=== PATIENT | female | born 1980 | race Caucasian/White ===

== ENCOUNTER 2023-09-10 14:20 | Emergency (ER) | payer MEDICAID, MEDICARE ==
[~2023-09-10] VITALS: Ht 160 cm; Wt 116.1 kg
[2023-09-10 14:32] VITALS: BP 105/63; PULSE 91; RESP 17; TEMP 97.7; O2SAT 95
[2023-09-10] MEDS: CYCLOBENZAPRINE 10 MG TAB PO ONE (15:35)
[2023-09-10] MEDS: HYDROcodone/APAP 7.5/325 MG 1 TAB PO ONE (15:36)
[2023-09-10] MEDS ORDERED: ACET-8905 PO (16:47)
[2023-09-10] MEDS ORDERED: METH-1681 PO (16:47)
[2023-09-10] MEDS ORDERED: LID5T TP (16:47)
[2023-09-10 17:00] LABS: APPEARANCE,URINE SLIGHTLY CLOUDY (CLEAR); COLOR,URINE YELLOW (YELLOW)
[2023-09-10 17:01] LABS: BILIRUBIN,URINE NEGATIVE (NEGATIVE); BLOOD, URINE NEGATIVE (NEGATIVE); PROTEIN,URINE NEGATIVE (NEGATIVE); UGLUCOSE NEGATIVE (NEGATIVE); UROBILINOGEN,URINE 0.2 EU/dL (0.2 - 1)
[2023-09-10 17:02] LABS: NITRITE, URINE NEGATIVE (NEGATIVE)
[2023-09-10 17:03] LABS: LEUKOCYTE ESTERASE ,URINE 2+ (NEGATIVE)
[2023-09-10 17:04] LABS: BACTERIA,URINE >30 (MANY) /HPF (None Seen); RBC,URINE 0-5 /HPF (0-5); SQUAMOUS EPITHELIAL CELL,UR 4-10 (MOD) /LPF (0-3 (FEW))
[2023-09-10] MEDS ORDERED: CEPH-588 PO (17:12)
[2023-09-10 18:00] VITALS: BP 110/65; PULSE 88; RESP 18; TEMP 97.3; O2SAT 98
== END 2023-09-10 18:01 | disposition home or self-care (01) ==
LOC: MED 14:20
DX: N39.0 Urinary tract infection, site not specified (principal); M54.50 Low back pain, unspecified; Z79.1 Long term (current) use of non-steroidal anti-inflammatories (NSAID); Z79.899 Other long term (current) drug therapy
CPT/HCPCS: 72100; 81001; 81025; 87086; 99284

== ENCOUNTER 2023-12-12 08:27 | Emergency (ER) | payer MEDICAID, OTHER ==
[~2023-12-12] VITALS: Ht 157.5 cm; Wt 111.1 kg
[~2023-12-12 08:27] MED LIST: ACET-8905 PO; CEPH-588 PO; LID5T TP; METH-1681 PO
[2023-12-12 08:35] VITALS: BP 131/83; PULSE 65; RESP 18; TEMP 98; O2SAT 97
[2023-12-12 09:29] LABS: BASOPHILS % (AUTO) 0.3 % (0.0-2.0); EOSINOPHILS % (AUTO) 0.1 % (0.0-4.0); HEMATOCRIT 44.8 % (36-48); HEMOGLOBIN 14.9 g/dL (12.0-16.0); LYMPHOCYTES # (AUTO) 1.3 K/uL (2.5-16.5); LYMPHOCYTES % (AUTO) 10.6 % (20.5-51.1); MEAN CORPUSCULAR HEMOGLOBIN 29 pg (27-31); MEAN CORPUSCULAR HGB CONC 33 g/dL (33-37); MEAN CORPUSCULAR VOLUME 88.3 fL (80-94); MONOCYTES # (AUTO) 0.3 K/uL (0.8-1.0); MONOCYTES % (AUTO) 2.6 % (1.7-9.3); NEUTROPHILS # (AUTO) 10.9 K/uL (1.8-7.7); NEUTROPHILS % (AUTO) 86.4 % (42.2-75.2); PLATELET COUNT (AUTO) 324 K/uL (140-450); RED BLOOD CELL COUNT(AUTO) 5.07 MIL/uL (4.20-5.40); RED CELL DISTRIBUTION WIDTH 13.5 % (11.6-13.7); WHITE BLOOD COUNT (AUTO) 12.6 K/uL (4.8-10.8)
[2023-12-12] MEDS: NACL 0.9% 1,000 ML IV ONE (09:39)
[2023-12-12] MEDS: MORPHINE SULFATE 4 MG/ML SYR IVP ONE (09:40)
[2023-12-12] MEDS: ONDANSETRON 4 MG/2 ML VIAL IVP ONE (09:40)
[2023-12-12 09:42] VITALS: O2SAT 97
[2023-12-12 10:10] LABS: ANION GAP 10.3 (8-16); CALCIUM 10.5 mg/dL (8.5-10.1); CARBON DIOXIDE 29.5 mmol/L (21-32); CREATININE 1.1 mg/dL (0.6-1.3); POTASSIUM 3.8 mmol/L (3.5-5.1)
[2023-12-12 10:15] LABS: ALBUMIN 4.2 g/dL (3.4-5.0); BILIRUBIN,DIRECT 0.2 mg/dL (0.0-0.3); TOTAL BILIRUBIN 0.8 mg/dL (0.0-1.0); TOTAL PROTEIN, SERUM 8.6 g/dL (6.4-8.2)
[2023-12-12] MEDS: METOCLOPRAMIDE 10 MG/2 ML INJ VIAL IVP ONE (10:41)
[2023-12-12] MEDS ORDERED: DICYCLOMINE HCL LIQUID 10 MG/5 ML UDC ONE (11:29)
[2023-12-12] MEDS ORDERED: ALUMINUM HYD/MAG/SIMETHICONE 30 ML UDC ONE (11:29)
[2023-12-12] MEDS: DICYCLOMINE HCL LIQUID 20 MG, ALUMINUM HYD/MAG/SIMETHICONE 30 ML, LIDOCAINE VISCOUS 2% ... PO ONE (11:32)
[2023-12-12 11:42] LABS: APPEARANCE,URINE CLEAR (CLEAR); BILIRUBIN,URINE NEGATIVE (NEGATIVE); BLOOD, URINE NEGATIVE (NEGATIVE); COLOR,URINE YELLOW (YELLOW); LEUKOCYTE ESTERASE ,URINE NEGATIVE (NEGATIVE); NITRITE, URINE NEGATIVE (NEGATIVE); PH,URINE 6.5 (5.0-9.0); PROTEIN,URINE NEGATIVE (NEGATIVE); UGLUCOSE NEGATIVE (NEGATIVE); UROBILINOGEN,URINE 0.2 EU/dL (0.2 - 1)
[2023-12-12] MEDS ORDERED: ONDA-188 SL (11:50)
[2023-12-12] MEDS ORDERED: FAMO-90 PO (11:50)
[2023-12-12] MEDS ORDERED: SUCR1TAB56 PO (11:50)
[2023-12-12 12:04] VITALS: BP 131/83; PULSE 65; RESP 18; TEMP 98; O2SAT 97
== END 2023-12-12 12:07 | disposition home or self-care (01) ==
LOC: MED 08:27
DX: K29.70 Gastritis, unspecified, without bleeding (principal); Z90.49 Acquired absence of other specified parts of digestive tract; Z79.899 Other long term (current) drug therapy; Z88.6 Allergy status to analgesic agent; Z88.5 Allergy status to narcotic agent
CPT/HCPCS: 36415; 74022; 80048; 80076; 81003; 81025; 83690; 85025; 96361; 96374; 96375; 99284; J2270; J2405; J2765; J7030

== ENCOUNTER 2024-01-01 07:08 | Emergency (ER) | payer OTHER ==
[~2024-01-01] VITALS: Ht 160 cm; Wt 108.6 kg
[~2024-01-01 07:08] MED LIST changes: +FAMO-90 PO; +ONDA-188 SL; +SUCR1TAB56 PO
[2024-01-01 07:15] VITALS: BP 135/69; PULSE 80; RESP 18; TEMP 98; O2SAT 96
[2024-01-01] MEDS: MORPHINE SULFATE 4 MG/ML SYR IVP ONE (07:51)
[2024-01-01] MEDS: NACL 0.9% 1,000 ML IV SCH (07:53)
[2024-01-01] MEDS: diphenhydrAMINE 50 MG/ML VIAL IVP ONE (07:54)
[2024-01-01] MEDS: METOCLOPRAMIDE 10 MG/2 ML INJ VIAL IVP ONE (07:55)
[2024-01-01 07:57] LABS: BASOPHILS # (AUTO) 0.1 K/uL (0.00-0.22); BASOPHILS % (AUTO) 0.4 % (0.0-2.0); EOSINOPHILS % (AUTO) 0.1 % (0.0-4.0); HEMATOCRIT 42.1 % (36-48); HEMOGLOBIN 14.1 g/dL (12.0-16.0); LYMPHOCYTES # (AUTO) 1.1 K/uL (2.5-16.5); LYMPHOCYTES % (AUTO) 8.8 % (20.5-51.1); MEAN CORPUSCULAR HEMOGLOBIN 30 pg (27-31); MEAN CORPUSCULAR HGB CONC 34 g/dL (33-37); MEAN CORPUSCULAR VOLUME 87.8 fL (80-94); MONOCYTES # (AUTO) 0.2 K/uL (0.8-1.0); NEUTROPHILS # (AUTO) 11.1 K/uL (1.8-7.7); NEUTROPHILS % (AUTO) 88.7 % (42.2-75.2); PLATELET COUNT (AUTO) 334 K/uL (140-450); RED CELL DISTRIBUTION WIDTH 13.7 % (11.6-13.7); WHITE BLOOD COUNT (AUTO) 12.5 K/uL (4.8-10.8)
[2024-01-01 08:00] VITALS: O2SAT 96
[2024-01-01 08:06] LABS: ANION GAP 14.5 (8-16); CALCIUM 9.4 mg/dL (8.5-10.1); CARBON DIOXIDE 27.3 mmol/L (21-32); POTASSIUM 3.8 mmol/L (3.5-5.1)
[2024-01-01 08:12] LABS: ALBUMIN 3.7 g/dL (3.4-5.0); BILIRUBIN,DIRECT 0.2 mg/dL (0.0-0.3); TOTAL BILIRUBIN 0.5 mg/dL (0.0-1.0); TOTAL PROTEIN, SERUM 7.6 g/dL (6.4-8.2)
[2024-01-01 09:18] LABS: APPEARANCE,URINE CLEAR (CLEAR); BILIRUBIN,URINE NEGATIVE (NEGATIVE); BLOOD, URINE NEGATIVE (NEGATIVE); COLOR,URINE YELLOW (YELLOW); LEUKOCYTE ESTERASE ,URINE NEGATIVE (NEGATIVE); NITRITE, URINE NEGATIVE (NEGATIVE); PH,URINE 8.5 (5.0-9.0); PROTEIN,URINE TRACE (NEGATIVE); UGLUCOSE NEGATIVE (NEGATIVE); UROBILINOGEN,URINE 0.2 EU/dL (0.2 - 1)
[2024-01-01 09:33] LABS: BACTERIA,URINE >30 (MANY) /HPF (None Seen); RBC,URINE 0-5 /HPF (0-5); SQUAMOUS EPITHELIAL CELL,UR 4-10 (MOD) /LPF (0-3 (FEW)); WBC,URINE 0-5 /HPF (0-5)
[2024-01-01] MEDS ORDERED: METO-485 PO (09:50)
[2024-01-01] MEDS ORDERED: ACET-8905 PO (09:50)
== END 2024-01-01 09:55 | disposition home or self-care (01) ==
LOC: MED 07:08
DX: R10.13 Epigastric pain (principal); R10.33 Periumbilical pain; R11.2 Nausea with vomiting, unspecified; R03.0 Elevated blood-pressure reading, without diagnosis of hypertension; Z79.899 Other long term (current) drug therapy; Z90.710 Acquired absence of both cervix and uterus; Z88.8 Allergy status to other drugs, medicaments and biological substances
CPT/HCPCS: 36415; 74176; 80048; 80076; 81001; 83690; 85025; 87086; 96361; 96374; 96375; 99285; J1200; J2270; J2765